=== PATIENT | female | born 1995 | race Native Hawaiian/Other Pacific Islander ===

== ENCOUNTER 2017-05-14 15:16 | Emergency (ER) | payer OTHER ==
[~2017-05-14] VITALS: Ht 175.3 cm; Wt 117.9 kg
[2017-05-14 15:29] VITALS: BP 141/74; TEMP 98.5
== END 2017-05-14 16:10 | disposition home or self-care (01) ==
LOC: ED 15:16
DX: H60.91 Unspecified otitis externa, right ear (principal)
CPT/HCPCS: 99281